=== PATIENT | female | born 1965 | race Caucasian/White ===

== ENCOUNTER 2016-10-29 11:45 | Emergency (ER) | payer OTHER ==
[2016-10-29 12:30] LABS: HEMOGLOBIN 16.1 gm/dl (12.3-15.3); RED BLOOD COUNT 5.09 M/UL (4.00-5.10); WHITE BLOOD COUNT 9.4 K/UL (4.5-11.0)
[2016-10-29 12:54] LABS: BUN/CREATININE RATIO 20 (0-10)
[2017-02-22] MEDS ORDERED: LISINOPRIL5 MG PO (02:51)
[2017-02-22] MEDS ORDERED: GLUCOPHAGE 500500 MG PO (02:52)
[2017-02-22] MEDS ORDERED: PROZAC10 MG PO (02:52)
[2017-02-22] MEDS ORDERED: SYNTHROID75 MCG PO (02:52)
[2017-02-24] MEDS ORDERED: TYLENOL 325MG325 MG PO (11:04)
[2017-02-24] MEDS ORDERED: ULTRAM50 MG PO (11:05)
== END 2016-10-29 14:36 | disposition home or self-care (01) ==
LOC: ER1 11:45
PROVIDERS: Emergency Medicine
DX: R51 Headache (principal); F17.200 Nicotine dependence, unspecified, uncomplicated; R53.83 Other fatigue; M62.81 Muscle weakness (generalized); Z90.49 Acquired absence of other specified parts of digestive tract
CPT/HCPCS: 36415; 70450; 71010; 80053; 82550; 82553; 83874; 84484; 85025; 85610; 85730; 93005; 96374; 96375; 99284; J1200; J1885; J2765; J7040